=== PATIENT | female | born 1950 | race African-American/Black ===

== ENCOUNTER → 2016-05-19 | Outpatient (CLI) | payer MEDICARE, OTHER | LOC: RAD 08:28 | PROVIDERS: ATTEND Internal Medicine Medical Oncology | DX: C34.90 Malignant neoplasm of unspecified part of unspecified bronchus or lung (principal); C79.9 Secondary malignant neoplasm of unspecified site | CPT/HCPCS: 71260; 74177 ==

== ENCOUNTER 2016-06-26 22:50 | Inpatient (IN) | payer MEDICARE, OTHER ==
[2016-06-26] MEDS ORDERED: ACETAMINOPHEN 325 MG TABLET PO ONE (23:51)
[2016-06-27 00:36] LABS: VENOUS BLOOD BASE EXCESS -1.4 mmol/L; VENOUS BLOOD HCO3 22.7 mmol/L (20-32); VENOUS BLOOD PCO2 35.2 mmHg (35-63); VENOUS BLOOD PH 7.43 (7.30-7.42)
[2016-06-27 00:52] LABS: ALANINE AMINOTRANSFERASE 29 U/L (9-52); ALBUMIN 3.4 g/dL (3.5-5.0); ALKALINE PHOSPHATASE 54 U/L (38-126); ANION GAP 13 (5-19); ASPARTATE AMINO TRANSFERASE 17 U/L (14-36); BILIRUBIN,DIRECT 0.5 mg/dL (0.0-0.4); BILIRUBIN,TOTAL 1.2 mg/dL (0.2-1.3); BLOOD UREA NITROGEN 16 mg/dL (7-20); CALCIUM 9.1 mg/dL (8.4-10.2); CARBON DIOXIDE 21 mmol/L (22-30); CHLORIDE 100 mmol/L (98-107); CREATININE RESULT 1.08 mg/dL (0.52-1.25); GLUCOSE 93 mg/dL (75-110); POTASSIUM 4.1 mmol/L (3.6-5.0); SODIUM 134.2 mmol/L (137-145); TOTAL PROTEIN 6.5 g/dL (6.3-8.2)
[2016-06-27 01:00] LABS: ABSOLUTE LYMPHOCYTES (AUTO) 0.2 10^3/uL (0.5-4.7); ABSOLUTE MONOCYTES (AUTO) 0.2 10^3/uL (0.1-1.4); ABSOLUTE NEUT (AUTO) 0.5 10^3/uL (1.7-8.2); BASOPHILS % (AUTO) 0.4 % (0-2); EOSINOPHILS % (AUTO) 3.6 % (0-6); HEMATOCRIT 30.8 % (36.0-47.0); HEMOGLOBIN 9.9 g/dL (12.0-15.5); HGB HCT DIFFERENCE -1.1; LYMPHOCYTES % (AUTO) 24.1 % (13-45); MEAN CORPUSCULAR HEMOGLOBIN 27.1 pg (27.0-33.4); MEAN CORPUSCULAR HGB CONC 32.2 g/dL (32.0-36.0); MEAN CORPUSCULAR VOLUME 84 fl (80-97); MONOCYTES % (AUTO) 20.2 % (3-13); RED BLOOD COUNT 3.67 10^6/uL (3.72-5.28); RED CELL DISTRIBUTION WIDTH 20.9 % (11.5-14.0); SEGMENTED NEUTROPHILS % (AUTO) 51.7 % (42-78)
[2016-06-27 01:07] LABS: WHITE BLOOD COUNT 0.9 10^3/uL (4.0-10.5)
[2016-06-27 01:13] LABS: ANISOCYTOSIS 2+; OVALOCYTES 1+; TOXIC GRANULATION SLIGHT; TOXIC VACUOLATION PRESENT
[2016-06-27 01:14] LABS: PLATELET CLUMPS PRESENT; POIKILOCYTOSIS 1+; TEAR DROP CELLS SLIGHT
[2016-06-27] MEDS ORDERED: NORMAL SALINE 1000 ML 1,000 ML IV ONE (01:33)
--- NOTE | 2016-06-27 01:43 | ER Document Report ---
ED General - General Chief Complaint: Fever Stated Complaint: FEVER Time seen by provider: 00:47 Information source: Patient TRAVEL OUTSIDE OF THE [place] IN LAST 30 DAYS: No - HPI Notes: Nonsmoking pleasant 65-year-old female diagnosed with small cell lung cancer 2 years ago, currently is undergoing chemotherapy with last IV dose of chemotherapy 4 days ago presents with fever at home to 103.6. Patient states that 2 weeks ago she and other family members had a fever vomiting and diarrhea. She states she had a family member seem to get better, but she has continued to run a fever. She states she last vomited 3 days ago, and still has persistent mild nonbloody diarrhea. No recent antibiotics. She states she has a very minimal nonproductive cough, which is chronic. She denies any abdominal pain. No skin rash or breakdown. No chest pain. Patient describes no trouble with her [employer]. - Related Data Allergies/Adverse Reactions: alendronate sodium [From Fosamax] Allergy (Severe, Verified 11/28/14 07:45) Chest pain cefuroxime axetil [From Ceftin] Allergy (Severe, Verified 11/28/14 07:45) bleeding tramadol [Tramadol] Allergy (Severe, Verified 11/28/14 07:45) Anaphylaxis trimethoprim [Trimethoprim] Allergy (Severe, Verified 11/28/14 07:45) Chest pain Sulfa (Sulfonamide Antibiotics) Allergy (Intermediate, Verified 11/28/14 07:45) n/v codeine [Codeine] Allergy (Mild, Verified 11/28/14 07:45) drowsy Past Medical History - Social History Smoking Status: Never Smoker Chew tobacco use (# tins/day): No Frequency of alcohol use: None Drug Abuse: None Family History: Other Patient has suicidal ideation: No Patient has homicidal ideation: No - Past Medical History Cardiac Medical History: Reports: Hx Hypertension Denies: Hx Coronary Artery Disease, Hx Heart Attack Pulmonary Medical History: Denies: Hx Asthma, Hx Bronchitis, Hx COPD, Hx Pneumonia Neurological Medical History: Denies: Hx Cerebrovascular Accident, Hx Seizures Renal/ Medical History: Denies: Hx Peritoneal Dialysis Malignancy Medical History: Reports: Hx Lung Cancer Musculoskeltal Medical History: Denies Hx Arthritis Psychiatric Medical History: Denies: Hx Depression Past Surgical History: Reports: Hx Hysterectomy - Immunizations Hx Diphtheria, Pertussis, Tetanus Vaccination: No Review of Systems - Review of Systems Notes: PHYSICAL EXAMINATION: GENERAL: Well-appearing, well-nourished and in no acute distress. HEAD: Atraumatic, normocephalic. EYES: Pupils equal round and reactive to light, extraocular movements intact, conjunctiva are normal. ENT: Nares patent, oropharynx clear without exudates. Slightly dry mucous membranes. NECK: Normal range of motion, supple without lymphadenopathy. No meningismus. LUNGS: Breath sounds clear to auscultation bilaterally and equal. No wheezes rales or rhonchi. HEART: Regular rate and rhythm without murmurs ABDOMEN: Soft, nontender, nondistended abdomen. No guarding, no rebound. No masses appreciated. Female : deferred Musculoskeletal: Normal range of motion, no pitting or edema. No cyanosis. NEUROLOGICAL: Cranial nerves grossly intact. Normal speech, normal gait. Normal sensory, motor exams PSYCH: Normal mood, normal affect. SKIN: Warm, Dry, normal turgor, no rashes or lesions noted. Physical Exam - Vital signs Vitals: Temp Pulse Resp BP Pulse Ox 100.3 F 143 H 20 119/54 L 97 06/26/16 23:46 06/26/16 23:46 06/26/16 23:46 06/26/16 23:46 06/26/16 23:46 - Notes Notes: PHYSICAL EXAMINATION: GENERAL: Well-appearing, well-nourished and in no acute distress. HEAD: Atraumatic, normocephalic. EYES: Pupils equal round and reactive to light, extraocular movements intact, conjunctiva are normal. ENT: Nares patent, oropharynx clear without exudates. Somewhat dry mucous membranes. NECK: Normal range of motion, supple without lymphadenopathy LUNGS: Breath sounds clear to auscultation bilaterally and equal. No wheezes rales or rhonchi. HEART: Tachy 122 rate and reg rhythm without murmurs. Patient has a right upper chest med port which appears clear and appropriate. This traverses above the right clavicle. ABDOMEN: Soft, nontender, nondistended abdomen. No guarding, no rebound. No masses appreciated. Female : deferred Musculoskeletal: Normal range of motion, no pitting or edema. No cyanosis. NEUROLOGICAL: Cranial nerves grossly intact. Normal speech, normal gait. Normal sensory, motor exams PSYCH: Normal mood, normal affect. SKIN: Warm, Dry, normal turgor, no rashes or lesions noted. Course - Re-evaluation Re-evalutation: 06/27/16 01:43 Patient was given IV fluids 1 L and was given Tylenol for her fever. Blood and urine cultures were taken. 06/27/16 02:09 No obvious evidence for urinary tract infection or dental infection or cellulitis or hypoxia or obvious pneumonia, although cannot exclude a possible pneumonia given the presence of the lung cancer findings on chest x-ray. Question fever secondary to the patient's lung cancer. No suggestion for sepsis or SIRS given normal blood pressure and normal lactic acid. No evidence for influenza. After blood and urine cultures, the patient was given IV vancomycin and IV Levaquin. Her reported allergy to cefuroxime is related to bleeding risk. Discussion was undertaken with the patient and her and she was in agreement with admission for further evaluation and management. Discussion was undertaken with Dr. Garrido, and he agreed to admit the patient for further evaluation and care. Patient was kept on reverse isolation while in the emergency department. 06/27/16 05:53 - Vital Signs Vital signs: Temp Pulse Resp BP Pulse Ox 100.3 F 143 H 20 110/58 L 99 06/26/16 23:46 06/26/16 23:46 06/27/16 05:00 06/27/16 05:00 06/27/16 05:00 - Laboratory Result Diagrams: 06/27/16 00:00 06/27/16 00:00 Laboratory results interpreted by me: 06/27/16 06/27/16 06/27/16 00:00 00:00 00:00 WBC 0.9 L* RBC 3.67 L Hgb 9.9 L Hct 30.8 L RDW 20.9 H Monocytes % 20.2 H Absolute Neutrophils 0.5 L Absolute Lymphocytes 0.2 L PT VBG pH Sodium 134.2 L Carbon Dioxide 21 L Est GFR (Non-Af Amer) 51 L Lactic Acid 0.5 L Direct Bilirubin 0.5 H Albumin 3.4 L 06/27/16 06/27/16 00:00 00:50 WBC RBC Hgb Hct RDW Monocytes % Absolute Neutrophils Absolute Lymphocytes PT 16.0 H VBG pH 7.43 H Sodium Carbon Dioxide Est GFR (Non-Af Amer) Lactic Acid Direct Bilirubin Albumin - EKG Interpretation by Nv EKG shows normal: Sinus rhythm Additional EKG results interpreted by me: 06/27/16 02:07 EKG as interpreted by me showed sinus tachycardia rate of 120. There is nonspecific T-wave abnormalities appreciated inferiorly. There is no gross evidence for acute [place] or ischemia noted. There was no old EKG available for comparison. 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
[2016-06-27] MEDS ORDERED: VANCOMYCIN HCL INJ 1000 MG VIAL IV ONE (03:23)
[2016-06-27] MEDS: LEVOFLOXACIN 750 MG/D5W RTU 750 MG/150 ML RTUPB IV SCH (06:00)
[2016-06-27] MEDS ORDERED: LEVOFLOXACIN 750 MG/D5W RTU 150 ML IV SCH (06:00)
[2016-06-27 06:03] LABS: APPEARANCE,URINE SLIGHTLY-CLOUDY; BILIRUBIN,URINE NEGATIVE (NEGATIVE); GLUCOSE, URINE NEGATIVE (NEGATIVE); KETONES,URINE 20 mg/dL (NEGATIVE); LEUKOCYTE ESTERASE,URINE NEGATIVE (NEGATIVE); NITRITE,URINE POSITIVE (NEGATIVE); PROTEIN,URINE NEGATIVE (NEGATIVE); URINE SPECIFIC GRAVITY 1.012; UROBILINOGEN,URINE NEGATIVE mg/dL (<2.0)
[2016-06-27] MEDS ORDERED: ACETAMINOPHEN 325 MG TABLET PO PRN (08:49)
[2016-06-27] MEDS ORDERED: ENOXAPARIN SODIUM INJ 40 MG/0.4 ML DISP.SYRIN SUBCUT ONE (09:30)
[2016-06-27 10:13] LABS: PROTHROMBIN TIME 17.8 SEC (11.4-15.4)
[2016-06-27 10:14] LABS: PARTIAL THROMBOPLASTIN TIME 37.1 SEC (23.5-35.8)
[2016-06-27] MEDS: AZTREONAM 1 GM in DEXTROSE 5%-WATER 50 ML IV SCH ×2 (10:38→17:54)
[2016-06-27] MEDS: AMLODIPINE BESYLATE 5 MG TABLET PO SCH (10:39)
[2016-06-27] MEDS: LANSOPRAZOLE 30 MG TAB.RAP.DR PO SCH (10:39)
[2016-06-27] MEDS: ONDANSETRON HCL INJ/PF 4 MG/2 ML SDV IV PRN (10:39)
--- NOTE | 2016-06-27 10:59 | EKG REPORT ---
SEVERITY:- ABNORMAL ECG - SINUS TACHYCARDIA PROBABLE LEFT ATRIAL ABNORMALITY NONSPECIFIC T ABNORMALITIES, INFERIOR LEADS : Confirmed by: Melissa Malik 27-Jun-2016 10:58:35
[2016-06-27] MEDS: FILGRASTIM INJ 480 MCG/1.6 ML VIAL SUBCUT SCH (11:07)
[2016-06-27 11:59] LABS: PATH REVIEW PATHOLOGIST REVIEWED
--- NOTE | 2016-06-27 17:15 | PDOC H&P ---
History of Present Illness Admission Date/PCP: 06/27/16 06:16 CHRIS GARRIDO Patient complains of: Fever History of Present Illness: PRANAY FRAUSTO is a 65 year old female known to my practice who presented to the ED with above complaints. Spouse reported that patient was recently started on a new chemotherapy drug with 2 weeks interval administration and currently on her second cycle but have been gradually weak over last couple of days. There is associated loss of appetite, nausea, vomiting and diarrhea. Family noted that she has been less participatory and warm to touch. Her pre presentation temperature was reported at 103.6F. Spouse reported productive cough with sputum described as whitish in character. No reported chest pain or difficulty with breathing. She denied any dysuria, hematuria, of flank pain. Family reported no family member with similar problem. Past Medical History Cardiac Medical History: Reports: Hypertension Denies: Coronary Artery Disease, Myocardial Infarction Pulmonary Medical History: Denies: Asthma, Bronchitis, Chronic Obstructive Pulmonary Disease (COPD), Pneumonia Neurological Medical History: Denies: Seizures Malignancy Medical History: Reports: Lung Cancer Musculoskeltal Medical History: Denies: Arthritis Psychiatric Medical History: Denies: Depression Hematology: Reports: Anemia - PRE MENOPAUSE Past Surgical History Past Surgical History: Reports: Hysterectomy Social History Smoking Status: Never Smoker Frequency of Alcohol Use: None Hx Recreational Drug Use: No Hx Prescription Drug Abuse: No Family History Family History: Other Parental Family History Reviewed: Yes Children Family History Reviewed: Yes Sibling(s) Family History Reviewed.: Yes Medication/Allergy Home Medications: Amlodipine Besylate [Norvasc 5 mg Tablet] 5 mg PO DAILY 06/27/16 Ondansetron HCl [Zofran 8 mg Tablet] 8 mg PO TID 06/27/16 Allergies/Adverse Reactions: alendronate sodium [From Fosamax] Allergy (Severe, Verified 11/28/14 07:45) Chest pain cefuroxime axetil [From Ceftin] Allergy (Severe, Verified 11/28/14 07:45) bleeding tramadol [Tramadol] Allergy (Severe, Verified 11/28/14 07:45) Anaphylaxis trimethoprim [Trimethoprim] Allergy (Severe, Verified 11/28/14 07:45) Chest pain Sulfa (Sulfonamide Antibiotics) Allergy (Intermediate, Verified 11/28/14 07:45) n/v codeine [Codeine] Allergy (Mild, Verified 11/28/14 07:45) drowsy Review of Systems Constitutional: PRESENT: anorexia, fever(s), weakness. ABSENT: as per HPI, chills, fatigue, headache(s), night sweats, weight gain, weight loss, other Eyes: ABSENT: visual disturbances Ears: ABSENT: hearing changes Nose, Mouth, and Throat: ABSENT: as per HPI, headache(s), mouth pain, sore throat, vertigo, other Cardiovascular: ABSENT: chest pain, dyspnea on exertion, edema, orthropnea, palpitations Respiratory: PRESENT: cough, sputum. ABSENT: as per HPI, dyspnea, hemoptysis, other Gastrointestinal: PRESENT: diarrhea, nausea, vomiting. ABSENT: as per HPI, abdominal pain, bloating, coffee ground emesis, constipation, dysphagia, heartburn, hematemesis, hematochezia, melena, other Genitourinary: ABSENT: as per HPI, difficulty urinating, dysuria, hematuria, nocturia, other Musculoskeletal: PRESENT: muscle weakness. ABSENT: as per HPI, back pain, deformity, joint swelling, other Integumentary: ABSENT: rash, wounds Neurological: PRESENT: weakness - generalized. ABSENT: as per HPI, abnormal gait, abnormal movements, abnormal speech, confusion, convulsions, dizziness, focal weakness, frequent falls, lack of coordination, memory loss, numbness, paresthesias, restless legs, syncope, tingling, tremor(s), vertigo, other Psychiatric: ABSENT: anxiety, depression, homidical ideation, suicidal ideation Endocrine: ABSENT: cold intolerance, heat intolerance, menstrual abnormalities, polydipsia, polyuria Hematologic/Lymphatic: ABSENT: easy bleeding, easy bruising, lymphadenopathy Allergic/Immunologic: ABSENT: as per HPI, seasonal rhinorrhea, other Physical Exam Vital Signs: Temp Pulse Resp BP Pulse Ox 98.5 F 143 H 20 115/68 99 06/27/16 06:09 06/26/16 23:46 06/27/16 06:00 06/27/16 06:00 06/27/16 06:00 General appearance: PRESENT: no acute distress, cooperative Head exam: PRESENT: atraumatic, normocephalic Eye exam: PRESENT: conjunctiva pink, EOMI, PERRLA. ABSENT: scleral icterus Ear exam: PRESENT: normal external ear exam Mouth exam: PRESENT: moist, tongue midline Teeth exam: ABSENT: dental caries, dental tenderness, edentulous, poor dentation , other Throat exam: ABSENT: post pharyngeal erythema, tonsillar erythema, tonsillar exudate, tonsillogmegaly, other Neck exam: PRESENT: full ROM. ABSENT: carotid bruit, JVD, lymphadenopathy, thyromegaly Respiratory exam: PRESENT: clear to auscultation raz, decreased breath sounds Cardiovascular exam: PRESENT: RRR. ABSENT: diastolic murmur, rubs, systolic murmur Pulses: PRESENT: normal dorsalis pedis pul, +2 pedal pulses bilateral Vascular exam: PRESENT: normal capillary refill GI/Abdominal exam: PRESENT: normal bowel sounds, soft. ABSENT: distended, guarding, mass, organolmegaly, rebound, tenderness Rectal exam: PRESENT: deferred Gentrourinary exam: ABSENT: ecchymosis, erythema, lacerations, lesions, urethral discharge, other Extremities exam: PRESENT: full ROM Musculoskeletal exam: PRESENT: deformity - related to joint involvement with arthritis Neurological exam: PRESENT: alert, awake, oriented to person, oriented to place , oriented to time, oriented to situation, CN II-XII grossly intact. ABSENT: motor sensory deficit Psychiatric exam: PRESENT: appropriate affect, normal mood. ABSENT: homicidal ideation, suicidal ideation Skin exam: PRESENT: dry, intact, warm. ABSENT: cyanosis, rash Results Laboratory Results: I reviewed her laboratory results on [employer] and form a significant part of my medical decision making. Impressions: Chest X-Ray 06/27/16 01:34 IMPRESSION: Left lower hemithoracic and right upper lobar opacities consistent with prior abnormal CT, 05/19/2016 this patient with suspected metastatic lung cancer . Assessment & Plan - Diagnosis (1) Neutropenic fever Is this a current diagnosis for this admission?: YesPlan: See admitting physician orders. (2) HTN (hypertension) Qualifiers: Hypertension type: essential hypertension Qualified Code(s): I10 - Essential (primary) hypertension Is this a current diagnosis for this admission?: YesPlan: See admitting physician orders. (3) Lung cancer Qualifiers: Laterality: unspecified laterality Lung location: unspecified part of lung Qualified Code(s): C34.90 - Malignant neoplasm of unspecified part of unspecified bronchus or lung Is this a current diagnosis for this admission?: YesPlan: See admitting physician orders. (4) Gastroenteritis due to antineoplastic chemotherapy Is this a current diagnosis for this admission?: YesPlan: See admitting physician orders. - Time Time Spent: 50 to 70 Minutes Medications reviewed and adjusted accordingly: Yes Within: Other - Inpatient Certification Based on my medical assessment, after consideration of the patient's comorbidities, presenting symptoms, or acuity I expect that the services needed warrant INPATIENT care.: Yes I certify that my determination is in accordance with my understanding of Medicare's requirements for reasonable and necessary INPATIENT services [42 CFR 412.3e].: Yes Medical Necessity: Need Close Monitoring Due to Risk of Patient Decompensation, Need For IV Fluids, Need For Continuous Telemetry Monitoring, Need for IV Antibiotics, Risk of Complication if Not Cared For in Hospital Post Hospital Care: D/C Ekg Tech Documentation - Plan Summary Plan Summary: See admitting physician orders.
[2016-06-28] MEDS: NORMAL SALINE 1000 ML 1,000 ML IV PRN ×2 (00:40→18:22)
[2016-06-28] MEDS: AZTREONAM 1 GM in DEXTROSE 5%-WATER 50 ML IV SCH ×3 (03:20→18:17)
[2016-06-28 05:59] LABS: HEMOGLOBIN 8.1 g/dL (12.0-15.5); HGB HCT DIFFERENCE -0.7; MEAN CORPUSCULAR HEMOGLOBIN 26.8 pg (27.0-33.4); MEAN CORPUSCULAR HGB CONC 32.3 g/dL (32.0-36.0); MEAN CORPUSCULAR VOLUME 83 fl (80-97); RED CELL DISTRIBUTION WIDTH 20.6 % (11.5-14.0); WHITE BLOOD COUNT 1.6 10^3/uL (4.0-10.5)
[2016-06-28 06:17] LABS: BLOOD UREA NITROGEN 11 mg/dL (7-20); CALCIUM 8.4 mg/dL (8.4-10.2); CARBON DIOXIDE 20 mmol/L (22-30); CHLORIDE 103 mmol/L (98-107); CREATININE RESULT 0.92 mg/dL (0.52-1.25); GLUCOSE 97 mg/dL (75-110); POTASSIUM 3.7 mmol/L (3.6-5.0)
[2016-06-28 06:21] LABS: ANION GAP 10 (5-19); SODIUM 133.3 mmol/L (137-145)
[2016-06-28 06:40] LABS: BASOPHILS % (MANUAL) 0 % (0-2); EOSINOPHILS % (MANUAL) 4 % (0-6); LYMPHOCYTES % (MANUAL) 21 % (13-45); TOTAL CELLS COUNTED 100
[2016-06-28 06:42] LABS: ANISOCYTOSIS 2+; HYPOCHROMASIA SLIGHT; OVALOCYTES 1+; POIKILOCYTOSIS 1+; SCHISTOCYTES SLIGHT; TEAR DROP CELLS 1+; TOXIC GRANULATION 1+; TOXIC VACUOLATION PRESENT
[2016-06-28 06:43] LABS: PLATELET CLUMPS PRESENT
[2016-06-28 06:44] LABS: BAND NEUTROPHILS % (MANUAL) 18 % (3-5)
[2016-06-28] MEDS: ENOXAPARIN SODIUM INJ 40 MG/0.4 ML DISP.SYRIN SUBCUT SCH (08:10)
[2016-06-28] MEDS: ONDANSETRON HCL INJ/PF 4 MG/2 ML SDV IV PRN ×2 (08:31→15:10)
[2016-06-28] MEDS: AMLODIPINE BESYLATE 5 MG TABLET PO SCH (09:30)
[2016-06-28] MEDS: FILGRASTIM INJ 480 MCG/1.6 ML VIAL SUBCUT SCH (09:31)
[2016-06-28] MEDS: LEVOFLOXACIN 750 MG/D5W RTU 750 MG/150 ML RTUPB IV SCH (09:31)
[2016-06-28] MEDS: LANSOPRAZOLE 30 MG TAB.RAP.DR PO SCH (09:31)
--- NOTE | 2016-06-28 16:22 | PDOC PROGRESS REPORT ---
Subjective Progress Note for:: 06/28/16 Subjective:: She was seen by the bedside, she was admitted for febrile neutropenia Physical Exam Vital Signs: Temp Pulse Resp BP Pulse Ox 98.7 F 115 H 16 101/47 L 100 06/28/16 11:26 06/28/16 14:00 06/28/16 11:26 06/28/16 11:26 06/28/16 11:26 Intake & Output 06/27/16 06/28/16 06/29/16 06:59 06:59 06:59 Intake Total 2049 220 Output Total 100 Balance 2049 120 Weight 52.8 kg General appearance: PRESENT: no acute distress, well-developed, well-nourished Head exam: PRESENT: atraumatic, normocephalic Eye exam: PRESENT: conjunctiva pink, EOMI, PERRLA Ear exam: PRESENT: normal external ear exam Mouth exam: PRESENT: moist, tongue midline Neck exam: PRESENT: full ROM Respiratory exam: PRESENT: clear to auscultation raz Cardiovascular exam: PRESENT: RRR, +S1, +S2 Pulses: PRESENT: normal dorsalis pedis pul, +2 pedal pulses bilateral Vascular exam: PRESENT: normal capillary refill GI/Abdominal exam: PRESENT: normal bowel sounds, soft Rectal exam: PRESENT: deferred Neurological exam: PRESENT: alert, awake, oriented to person, oriented to place , oriented to time, oriented to situation, CN II-XII grossly intact. ABSENT: motor sensory deficit Psychiatric exam: PRESENT: appropriate affect, normal mood Skin exam: PRESENT: dry, intact, warm Results Laboratory Results: 06/28/16 05:44 06/28/16 05:44 06/28/16 06/28/16 06/28/16 05:44 05:44 05:50 WBC 1.6 L RBC 3.00 L Hgb 8.1 L Hct 25.0 L MCV 83 MCH 26.8 L MCHC 32.3 RDW 20.6 H Plt Count 142 L Seg Neutrophils % Not Reportable Lymphocytes % Not Reportable Monocytes % Not Reportable Eosinophils % Not Reportable Basophils % Not Reportable Absolute Neutrophils Not Reportable Absolute Lymphocytes Not Reportable Absolute Monocytes Not Reportable Absolute Eosinophils Not Reportable Absolute Basophils Not Reportable Sodium 133.3 L Potassium 3.7 Chloride 103 Carbon Dioxide 20 L Anion Gap 10 BUN 11 Creatinine 0.92 Est GFR ( Amer) > 60 Est GFR (Non-Af Amer) > 60 Glucose 97 Calcium 8.4 Stool Occult Blood NEGATIVE Stool for White Cells 06/28/16 05:50 WBC RBC Hgb Hct MCV MCH MCHC RDW Plt Count Seg Neutrophils % Lymphocytes % Monocytes % Eosinophils % Basophils % Absolute Neutrophils Absolute Lymphocytes Absolute Monocytes Absolute Eosinophils Absolute Basophils Sodium Potassium Chloride Carbon Dioxide Anion Gap BUN Creatinine Est GFR ( Amer) Est GFR (Non-Af Amer) Glucose Calcium Stool Occult Blood Stool for White Cells MANY H Impressions: Chest X-Ray 06/27/16 01:34 IMPRESSION: Left lower hemithoracic and right upper lobar opacities consistent with prior abnormal CT, 05/19/2016 this patient with suspected metastatic lung cancer . Assessment & Plan - Diagnosis (2) Gastroenteritis due to antineoplastic chemotherapy Is this a current diagnosis for this admission?: Yes (3) HTN (hypertension) Qualifiers: Hypertension type: essential hypertension Qualified Code(s): I10 - Essential (primary) hypertension Is this a current diagnosis for this admission?: Yes (4) Lung cancer Qualifiers: Laterality: unspecified laterality Lung location: unspecified part of lung Qualified Code(s): C34.90 - Malignant neoplasm of unspecified part of unspecified bronchus or lung Is this a current diagnosis for this admission?: Yes (5) Neutropenic fever Is this a current diagnosis for this admission?: Yes - Plan Summary Plan Summary: Continue IV antibiotic and other treatment
[2016-06-29] MEDS: AZTREONAM 1 GM in DEXTROSE 5%-WATER 50 ML IV SCH ×3 (02:24→18:07)
[2016-06-29 05:33] LABS: HEMATOCRIT 25.7 % (36.0-47.0); HEMOGLOBIN 8.3 g/dL (12.0-15.5); HGB HCT DIFFERENCE -0.8; MEAN CORPUSCULAR HGB CONC 32.4 g/dL (32.0-36.0); MEAN CORPUSCULAR VOLUME 84 fl (80-97); RED BLOOD COUNT 3.07 10^6/uL (3.72-5.28); RED CELL DISTRIBUTION WIDTH 20.9 % (11.5-14.0); WHITE BLOOD COUNT 2.4 10^3/uL (4.0-10.5)
[2016-06-29 06:00] LABS: BAND NEUTROPHILS % (MANUAL) 15 % (3-5); BASOPHILS % (MANUAL) 0 % (0-2); EOSINOPHILS % (MANUAL) 5 % (0-6); LYMPHOCYTES % (MANUAL) 13 % (13-45); TOTAL CELLS COUNTED 100
[2016-06-29 06:02] LABS: ANISOCYTOSIS 3+; OVALOCYTES 1+; PLATELET CLUMPS PRESENT; POIKILOCYTOSIS 1+; SCHISTOCYTES SLIGHT; TEAR DROP CELLS 1+; TOXIC GRANULATION 1+; TOXIC VACUOLATION PRESENT
[2016-06-29 06:03] LABS: HYPOCHROMASIA SLIGHT
[2016-06-29] MEDS: ENOXAPARIN SODIUM INJ 40 MG/0.4 ML DISP.SYRIN SUBCUT SCH (09:07)
[2016-06-29] MEDS: LEVOFLOXACIN 750 MG/D5W RTU 750 MG/150 ML RTUPB IV SCH (09:08)
[2016-06-29] MEDS: AMLODIPINE BESYLATE 5 MG TABLET PO SCH (09:09)
[2016-06-29] MEDS: LANSOPRAZOLE 30 MG TAB.RAP.DR PO SCH (09:09)
[2016-06-29] MEDS: FILGRASTIM INJ 480 MCG/1.6 ML VIAL SUBCUT SCH (11:23)
[2016-06-29] MEDS: NORMAL SALINE 1000 ML 1,000 ML IV PRN (11:25)
[2016-06-29] MEDS: ONDANSETRON HCL INJ/PF 4 MG/2 ML SDV IV PRN (11:32)
[2016-06-29] MEDS ORDERED: LOPERAMIDE HCL 2 MG CAPSULE PO PRN (11:54)
--- NOTE | 2016-06-29 18:03 | PDOC PROGRESS REPORT ---
Subjective Progress Note for:: 06/29/16 Subjective:: She was admitted because of febrile neutropenia and diarrhea the stool was positive for Salmonella suggesting fecal -oral contamination. Physical Exam Vital Signs: Temp Pulse Resp BP Pulse Ox 98.4 F 114 H 14 128/58 H 100 06/29/16 15:19 06/29/16 15:19 06/29/16 15:19 06/29/16 15:19 06/29/16 15:19 Intake & Output 06/28/16 06/29/16 06/30/16 06:59 06:59 06:59 Intake Total 2049 319 Output Total 700 Balance 2049 2493 Weight 52.8 kg General appearance: PRESENT: no acute distress Eye exam: PRESENT: PERRLA Respiratory exam: PRESENT: clear to auscultation raz Cardiovascular exam: PRESENT: +S1, +S2 Neurological exam: PRESENT: alert Results Laboratory Results: 06/29/16 04:45 06/28/16 05:44 06/29/16 04:45 WBC 2.4 L RBC 3.07 L Hgb 8.3 L Hct 25.7 L MCV 84 MCH 27.0 MCHC 32.4 RDW 20.9 H Plt Count 160 Seg Neutrophils % Not Reportable Lymphocytes % Not Reportable Monocytes % Not Reportable Eosinophils % Not Reportable Basophils % Not Reportable Absolute Neutrophils Not Reportable Absolute Lymphocytes Not Reportable Absolute Monocytes Not Reportable Absolute Eosinophils Not Reportable Absolute Basophils Not Reportable Impressions: Chest X-Ray 06/27/16 01:34 IMPRESSION: Left lower hemithoracic and right upper lobar opacities consistent with prior abnormal CT, 05/19/2016 this patient with suspected metastatic lung cancer . Assessment & Plan - Diagnosis (2) Gastroenteritis due to antineoplastic chemotherapy Is this a current diagnosis for this admission?: Yes (3) HTN (hypertension) Qualifiers: Hypertension type: essential hypertension Qualified Code(s): I10 - Essential (primary) hypertension Is this a current diagnosis for this admission?: Yes (4) Lung cancer Qualifiers: Laterality: unspecified laterality Lung location: unspecified part of lung Qualified Code(s): C34.90 - Malignant neoplasm of unspecified part of unspecified bronchus or lung Is this a current diagnosis for this admission?: Yes (5) Neutropenic fever Is this a current diagnosis for this admission?: Yes (6) Salmonella serotype B enterocolitis Is this a current diagnosis for this admission?: YesPlan: Patient already on Levaquin
[2016-06-29] MEDS: DRONABINOL 2.5 MG CAPSULE PO SCH (18:07)
[2016-06-30] MEDS: AZTREONAM 1 GM in DEXTROSE 5%-WATER 50 ML IV SCH ×3 (02:38→21:04)
[2016-06-30] MEDS: NORMAL SALINE 1000 ML 1,000 ML IV PRN (02:40)
[2016-06-30 06:46] LABS: HEMATOCRIT 23.5 % (36.0-47.0); HGB HCT DIFFERENCE 0.2; MEAN CORPUSCULAR HEMOGLOBIN 27.6 pg (27.0-33.4); MEAN CORPUSCULAR HGB CONC 33.5 g/dL (32.0-36.0); MEAN CORPUSCULAR VOLUME 82 fl (80-97); RED BLOOD COUNT 2.86 10^6/uL (3.72-5.28); RED CELL DISTRIBUTION WIDTH 20.7 % (11.5-14.0); WHITE BLOOD COUNT 2.4 10^3/uL (4.0-10.5)
[2016-06-30 07:20] LABS: HEMOGLOBIN 7.9 g/dL (12.0-15.5)
[2016-06-30 07:45] LABS: BAND NEUTROPHILS % (MANUAL) 17 % (3-5); BASOPHILS % (MANUAL) 0 % (0-2); EOSINOPHILS % (MANUAL) 4 % (0-6); LYMPHOCYTES % (MANUAL) 18 % (13-45); TOTAL CELLS COUNTED 100
[2016-06-30 07:46] LABS: ANISOCYTOSIS 2+; HYPOCHROMASIA 1+; OVALOCYTES 2+; POIKILOCYTOSIS 2+; POLYCHROMASIA SLIGHT; TOXIC GRANULATION 2+; TOXIC VACUOLATION PRESENT
--- NOTE | 2016-06-30 09:14 | PDOC PROGRESS REPORT ---
Subjective Progress Note for:: 06/30/16 Subjective:: Patient reported some improvement in her appetite over last 24 hours. There is nausea with minimal amount of vomiting which is fairly controlled on current Zofran usage. There is associated epigastric abdominal discomfort. No chest pain or difficulty with breathing. Remain on IV Levofloxacin and Aztreonam coverage. There is significant drop in her hemoglobin to 7.9 gm/dl this morning. Physical Exam Vital Signs: Temp Pulse Resp BP Pulse Ox 98.7 F 114 H 16 107/53 L 100 06/30/16 04:12 06/30/16 07:00 06/30/16 04:12 06/30/16 04:12 06/30/16 04:12 Intake & Output 06/29/16 06/30/16 07/01/16 06:59 06:59 06:59 Intake Total 3193 2542 Output Total 700 500 Balance 2493 2042 General appearance: PRESENT: no acute distress, cooperative Head exam: PRESENT: atraumatic, normocephalic Eye exam: PRESENT: conjunctiva pink, EOMI, PERRLA. ABSENT: scleral icterus Mouth exam: PRESENT: moist, tongue midline Throat exam: ABSENT: post pharyngeal erythema, tonsillar erythema, tonsillar exudate, tonsillogmegaly, other Respiratory exam: PRESENT: clear to auscultation raz, decreased breath sounds - at bases Cardiovascular exam: PRESENT: RRR. ABSENT: diastolic murmur, rubs, systolic murmur GI/Abdominal exam: PRESENT: normal bowel sounds, soft, tenderness - elicited to deep palpation.. 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 Results Laboratory Results: 06/30/16 06:18 06/28/16 05:44 06/30/16 06:18 WBC 2.4 L RBC 2.86 L Hgb 7.9 L Hct 23.5 L MCV 82 MCH 27.6 MCHC 33.5 RDW 20.7 H Plt Count 166 Seg Neutrophils % Not Reportable Lymphocytes % Not Reportable Monocytes % Not Reportable Eosinophils % Not Reportable Basophils % Not Reportable Absolute Neutrophils Not Reportable Absolute Lymphocytes Not Reportable Absolute Monocytes Not Reportable Absolute Eosinophils Not Reportable Absolute Basophils Not Reportable Impressions: Chest X-Ray 06/27/16 01:34 IMPRESSION: Left lower hemithoracic and right upper lobar opacities consistent with prior abnormal CT, 05/19/2016 this patient with suspected metastatic lung cancer . Assessment & Plan - Diagnosis (1) Neutropenic fever Is this a current diagnosis for this admission?: Yes (2) HTN (hypertension) Qualifiers: Hypertension type: essential hypertension Qualified Code(s): I10 - Essential (primary) hypertension Is this a current diagnosis for this admission?: Yes (3) Lung cancer Qualifiers: Laterality: unspecified laterality Lung location: unspecified part of lung Qualified Code(s): C34.90 - Malignant neoplasm of unspecified part of unspecified bronchus or lung Is this a current diagnosis for this admission?: Yes (4) Gastroenteritis due to antineoplastic chemotherapy Is this a current diagnosis for this admission?: Yes (5) Anemia associated with chemotherapy Is this a current diagnosis for this admission?: YesPlan: Patient will receive 2 units of PRBC transfusion. Monitor post transfusion hemoglobin level. (6) E. coli UTI Is this a current diagnosis for this admission?: YesPlan: Continue IV Levofloxacin coverage. (7) Salmonella serotype B enterocolitis Is this a current diagnosis for this admission?: YesPlan: Continue IV Levofloxacin coverage. 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
[2016-06-30] MEDS: LANSOPRAZOLE 30 MG TAB.RAP.DR PO SCH (09:49)
[2016-06-30] MEDS: ENOXAPARIN SODIUM INJ 40 MG/0.4 ML DISP.SYRIN SUBCUT SCH (09:49)
[2016-06-30] MEDS: AMLODIPINE BESYLATE 5 MG TABLET PO SCH (09:52)
[2016-06-30] MEDS: DRONABINOL 2.5 MG CAPSULE PO SCH ×2 (09:53→17:14)
[2016-06-30] MEDS: FILGRASTIM INJ 480 MCG/1.6 ML VIAL SUBCUT SCH (10:59)
[2016-06-30] MEDS: LEVOFLOXACIN 750 MG/D5W RTU 750 MG/150 ML RTUPB IV SCH (10:59)
[2016-06-30 13:31] LABS: PATH REVIEW PATHOLOGIST REVIEWED
[2016-07-01 05:32] LABS: HGB HCT DIFFERENCE 0.6; MEAN CORPUSCULAR HEMOGLOBIN 28.2 pg (27.0-33.4); MEAN CORPUSCULAR HGB CONC 34.1 g/dL (32.0-36.0); MEAN CORPUSCULAR VOLUME 83 fl (80-97); RED BLOOD COUNT 3.98 10^6/uL (3.72-5.28); RED CELL DISTRIBUTION WIDTH 17.8 % (11.5-14.0)
[2016-07-01 05:41] LABS: HEMOGLOBIN 11.2 g/dL (12.0-15.5)
[2016-07-01] MEDS ORDERED: AZTREONAM 1 GM in DEXTROSE 5%-WATER 50 ML IV SCH ×2 (06:00→14:00)
[2016-07-01 06:07] LABS: BAND NEUTROPHILS % (MANUAL) 6 % (3-5); BASOPHILS % (MANUAL) 0 % (0-2); EOSINOPHILS % (MANUAL) 3 % (0-6); LYMPHOCYTES % (MANUAL) 18 % (13-45); TOTAL CELLS COUNTED 100
[2016-07-01 06:09] LABS: ANISOCYTOSIS 1+; OVALOCYTES SLIGHT; POIKILOCYTOSIS SLIGHT; TEAR DROP CELLS SLIGHT; TOXIC GRANULATION SLIGHT
[2016-07-01] MEDS: AMLODIPINE BESYLATE 5 MG TABLET PO SCH (09:32)
[2016-07-01] MEDS: ENOXAPARIN SODIUM INJ 40 MG/0.4 ML DISP.SYRIN SUBCUT SCH (09:40)
[2016-07-01] MEDS: LANSOPRAZOLE 30 MG TAB.RAP.DR PO SCH (09:41)
[2016-07-01] MEDS: DRONABINOL 2.5 MG CAPSULE PO SCH ×2 (09:41→17:25)
[2016-07-01] MEDS: LEVOFLOXACIN 750 MG/D5W RTU 750 MG/150 ML RTUPB IV SCH (09:42)
[2016-07-01] MEDS: AZTREONAM 1 GM in DEXTROSE 5%-WATER 100 ML IV SCH ×2 (14:04→21:07)
[2016-07-01] MEDS: NORMAL SALINE 1000 ML 1,000 ML IV PRN (21:06)
[2016-07-02] MEDS: AZTREONAM 1 GM in DEXTROSE 5%-WATER 100 ML IV SCH (05:05)
[2016-07-02] MEDS ORDERED: DIPHENOXYLATE HCL/ATROP SULF 2.5-0.025 MG TABLET PO ONE (07:38)
--- NOTE | 2016-07-02 07:48 | PDOC PROGRESS REPORT ---
Subjective Progress Note for:: 07/01/16 Subjective:: Patient reported minimal nausea. No vomiting. Some improvement in p.o intake but appetite remain poor. There is persistence of diarrhea. No chest pain or difficulty with breathing. Remain on IV Levofloxacin and Aztreonam coverage. There is significant drop in her hemoglobin to 7.9 gm/dl this morning. Physical Exam Vital Signs: Temp Pulse Resp BP Pulse Ox 98.4 F 102 H 18 115/61 99 07/01/16 02:30 07/01/16 07:00 07/01/16 02:30 07/01/16 02:30 07/01/16 02:30 Intake & Output 06/30/16 07/01/16 07/02/16 06:59 06:59 06:59 Intake Total 2542 1821 Output Total 500 Balance 2041 1821 Physical Exam: General appearance: PRESENT: no acute distress, cooperative Head exam: PRESENT: atraumatic, normocephalic Eye exam: PRESENT: conjunctiva pink, EOMI, PERRLA. ABSENT: scleral icterus Mouth exam: PRESENT: moist, tongue midline Respiratory exam: PRESENT: clear to auscultation raz, decreased breath sounds - at bases Cardiovascular exam: PRESENT: RRR. ABSENT: diastolic murmur, rubs, systolic murmur GI/Abdominal exam: PRESENT: normal bowel sounds, soft, tenderness - elicited to deep palpation.. 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 Results Laboratory Results: 07/01/16 05:15 06/28/16 05:44 06/28/16 06/30/16 07/01/16 05:44 09:45 05:15 WBC 1.6 L 3.0 L RBC 3.00 L 3.98 Hgb 8.1 L 11.2 L D Hct 25.0 L 33.0 L MCV 83 83 MCH 26.8 L 28.2 MCHC 32.3 34.1 RDW 20.6 H 17.8 H Plt Count 142 L 173 Seg Neutrophils % Not Reportable Lymphocytes % Not Reportable Monocytes % Not Reportable Eosinophils % Not Reportable Basophils % Not Reportable Absolute Neutrophils Not Reportable Absolute Lymphocytes Not Reportable Absolute Monocytes Not Reportable Absolute Eosinophils Not Reportable Absolute Basophils Not Reportable Blood Type A POSITIVE Antibody Screen NEGATIVE Impressions: Chest X-Ray 06/27/16 01:34 IMPRESSION: Left lower hemithoracic and right upper lobar opacities consistent with prior abnormal CT, 05/19/2016 this patient with suspected metastatic lung cancer . Assessment & Plan - Diagnosis (1) Neutropenic fever Is this a current diagnosis for this admission?: YesPlan: See attending physician orders. (2) HTN (hypertension) Qualifiers: Hypertension type: essential hypertension Qualified Code(s): I10 - Essential (primary) hypertension Is this a current diagnosis for this admission?: YesPlan: See attending physician orders. (3) Lung cancer Qualifiers: Laterality: unspecified laterality Lung location: unspecified part of lung Qualified Code(s): C34.90 - Malignant neoplasm of unspecified part of unspecified bronchus or lung Is this a current diagnosis for this admission?: YesPlan: See attending physician orders. (4) Gastroenteritis due to antineoplastic chemotherapy Is this a current diagnosis for this admission?: YesPlan: See attending physician orders. Monitor for persistence of diarrhea. (5) Anemia associated with chemotherapy Is this a current diagnosis for this admission?: YesPlan: Patient will receive 2 units of PRBC transfusion. Monitor post transfusion hemoglobin level. (6) E. coli UTI Is this a current diagnosis for this admission?: YesPlan: Continue IV Levofloxacin coverage. (7) Salmonella serotype B enterocolitis Is this a current diagnosis for this admission?: YesPlan: Continue IV Levofloxacin coverage. - Time Time Spent with patient: 25-34 minutes Medications reviewed and adjusted accordingly: Yes Anticipated discharge: Home with Homehealth Within: Other - Inpatient Certification Post Hospital Care: D/C Qa Intern Documentation - Plan Summary Plan Summary: See attending physician orders.
--- NOTE | 2016-07-02 07:56 | PDOC PROGRESS REPORT ---
Subjective Progress Note for:: 07/02/16 Subjective:: Patient reported persistence of diarrhea. No significant fever, chills, nausea, or vomiting. Some improvement in p.o intake but appetite remain poor. No chest pain or difficulty with breathing. Remain on IV Levofloxacin and Aztreonam coverage. She is s/p transfusion of 2 units PRBC. Physical Exam Vital Signs: Temp Pulse Resp BP Pulse Ox 98.2 F 102 H 14 129/64 H 100 07/02/16 04:50 07/02/16 04:50 07/02/16 04:50 07/02/16 04:50 07/02/16 04:50 Intake & Output 07/01/16 07/02/16 07/03/16 06:59 06:59 06:59 Intake Total 1821 2046 Balance 1821 2045 Physical Exam: General appearance: PRESENT: no acute distress, cooperative Head exam: PRESENT: atraumatic, normocephalic Eye exam: PRESENT: conjunctiva pink, EOMI, PERRLA. ABSENT: scleral icterus Mouth exam: PRESENT: moist, tongue midline Throat exam: ABSENT: post pharyngeal erythema, tonsillar erythema, tonsillar exudate, tonsillogmegaly, other Respiratory exam: PRESENT: clear to auscultation raz, decreased breath sounds - at bases Cardiovascular exam: PRESENT: RRR. ABSENT: diastolic murmur, rubs, systolic murmur GI/Abdominal exam: PRESENT: normal bowel sounds, soft, tenderness - elicited to deep palpation.. 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 Assessment & Plan - Diagnosis (1) Neutropenic fever Is this a current diagnosis for this admission?: YesPlan: See attending physician orders. I will d/c Aztreonam usage. (2) HTN (hypertension) Qualifiers: Hypertension type: essential hypertension Qualified Code(s): I10 - Essential (primary) hypertension Is this a current diagnosis for this admission?: YesPlan: See attending physician orders. (3) Lung cancer Qualifiers: Laterality: unspecified laterality Lung location: unspecified part of lung Qualified Code(s): C34.90 - Malignant neoplasm of unspecified part of unspecified bronchus or lung Is this a current diagnosis for this admission?: YesPlan: See attending physician orders. (4) Gastroenteritis due to antineoplastic chemotherapy Is this a current diagnosis for this admission?: YesPlan: See attending physician orders. I will order for Lomotil 5mg p.o x 1 dose. Her Salmonella species enteritis is sensitive to Levofloxacin. (5) Anemia associated with chemotherapy Is this a current diagnosis for this admission?: YesPlan: Patient is s/p 2 units PRBC transfusion with improvement in her hemoglobin level to 11.2 gm/dl. (6) E. coli UTI Is this a current diagnosis for this admission?: YesPlan: Continue IV Levofloxacin coverage. (7) Salmonella serotype B enterocolitis Is this a current diagnosis for this admission?: YesPlan: Continue IV Levofloxacin coverage. - Time Time Spent with patient: 25-34 minutes Medications reviewed and adjusted accordingly: Yes Anticipated discharge: Home with Homehealth Within: Other - Inpatient Certification Based on my medical assessment, after consideration of the patient's comorbidities, presenting symptoms, or acuity I expect that the services needed warrant INPATIENT care.: Yes I certify that my determination is in accordance with my understanding of Medicare's requirements for reasonable and necessary INPATIENT services [42 CFR 412.3e].: Yes Medical Necessity: Need Close Monitoring Due to Risk of Patient Decompensation, Need For IV Fluids, Need For Continuous Telemetry Monitoring, Need for IV Antibiotics, Risk of Complication if Not Cared For in Hospital 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
[2016-07-02] MEDS: ENOXAPARIN SODIUM INJ 40 MG/0.4 ML DISP.SYRIN SUBCUT SCH (09:42)
[2016-07-02] MEDS: LEVOFLOXACIN 750 MG/D5W RTU 750 MG/150 ML RTUPB IV SCH (09:42)
[2016-07-02] MEDS: DRONABINOL 2.5 MG CAPSULE PO SCH ×2 (09:42→19:09)
[2016-07-02] MEDS: AMLODIPINE BESYLATE 5 MG TABLET PO SCH (09:43)
[2016-07-02] MEDS: LANSOPRAZOLE 30 MG TAB.RAP.DR PO SCH (09:43)
[2016-07-02] MEDS: ONDANSETRON HCL INJ/PF 4 MG/2 ML SDV IV PRN (14:52)
[2016-07-02] MEDS: DIPHENOXYLATE HCL/ATROP SULF 2.5-0.025 MG TABLET PO PRN ×2 (19:10→22:57)
[2016-07-03] MEDS: DIPHENOXYLATE HCL/ATROP SULF 2.5-0.025 MG TABLET PO PRN ×2 (03:12→11:13)
[2016-07-03 06:44] LABS: HEMATOCRIT 31.5 % (36.0-47.0); HEMOGLOBIN 10.6 g/dL (12.0-15.5); HGB HCT DIFFERENCE 0.3; MEAN CORPUSCULAR HEMOGLOBIN 28.2 pg (27.0-33.4); MEAN CORPUSCULAR HGB CONC 33.7 g/dL (32.0-36.0); MEAN CORPUSCULAR VOLUME 84 fl (80-97); RED BLOOD COUNT 3.76 10^6/uL (3.72-5.28); RED CELL DISTRIBUTION WIDTH 18.3 % (11.5-14.0); WHITE BLOOD COUNT 2.7 10^3/uL (4.0-10.5)
[2016-07-03 06:54] LABS: ALANINE AMINOTRANSFERASE 34 U/L (9-52); ALBUMIN 2.1 g/dL (3.5-5.0); ALKALINE PHOSPHATASE 63 U/L (38-126); ANION GAP 8 (5-19); ASPARTATE AMINO TRANSFERASE 18 U/L (14-36); BILIRUBIN,DIRECT 0.2 mg/dL (0.0-0.4); BILIRUBIN,TOTAL 0.5 mg/dL (0.2-1.3); BLOOD UREA NITROGEN 7 mg/dL (7-20); CARBON DIOXIDE 25 mmol/L (22-30); CHLORIDE 106 mmol/L (98-107); CREATININE RESULT 0.61 mg/dL (0.52-1.25); GLUCOSE 79 mg/dL (75-110); SODIUM 139.3 mmol/L (137-145); TOTAL PROTEIN 4.4 g/dL (6.3-8.2)
[2016-07-03 06:56] LABS: POTASSIUM 2.8 mmol/L (3.6-5.0)
[2016-07-03 07:14] LABS: BAND NEUTROPHILS % (MANUAL) 13 % (3-5); BASOPHILS % (MANUAL) 0 % (0-2); EOSINOPHILS % (MANUAL) 5 % (0-6); LYMPHOCYTES % (MANUAL) 20 % (13-45); TOTAL CELLS COUNTED 100
[2016-07-03 07:15] LABS: ANISOCYTOSIS 2+; POIKILOCYTOSIS 1+; TEAR DROP CELLS 1+
[2016-07-03] MEDS: POTASSI CL 20 MEQ/50 ML RIDER 50 ML IV SCH ×3 (08:17→14:35)
[2016-07-03] MEDS: ENOXAPARIN SODIUM INJ 40 MG/0.4 ML DISP.SYRIN SUBCUT SCH (08:26)
--- NOTE | 2016-07-03 08:49 | PDOC PROGRESS REPORT ---
Subjective Progress Note for:: 07/03/16 Subjective:: Patient reported some improvement in diarrhea frequency and stool consistency. Improving nausea, vomiting and p.o intake. No chest pain or difficulty with breathing. No fever or chills. Physical Exam Vital Signs: Temp Pulse Resp BP Pulse Ox 98.1 F 96 20 117/54 L 100 07/03/16 03:56 07/03/16 07:00 07/03/16 03:56 07/03/16 03:56 07/03/16 03:56 Intake & Output 07/02/16 07/03/16 07/04/16 06:59 06:59 06:59 Intake Total 2045 2460 Balance 2045 2460 General appearance: PRESENT: no acute distress, well-developed, well-nourished Head exam: PRESENT: atraumatic, normocephalic Eye exam: PRESENT: conjunctiva pink, EOMI, PERRLA. ABSENT: scleral icterus Mouth exam: PRESENT: moist Respiratory exam: PRESENT: clear to auscultation raz Cardiovascular exam: PRESENT: RRR. ABSENT: diastolic murmur, rubs, systolic murmur GI/Abdominal exam: PRESENT: normal bowel sounds, soft. ABSENT: distended, guarding, mass, organolmegaly, rebound, tenderness Extremities exam: PRESENT: full ROM Musculoskeletal exam: PRESENT: deformity - related to her arthritis Neurological exam: PRESENT: alert, awake, oriented to person, oriented to place , oriented to time, oriented to situation, CN II-XII grossly intact. ABSENT: motor sensory deficit Psychiatric exam: PRESENT: appropriate affect, normal mood. ABSENT: homicidal ideation, suicidal ideation Skin exam: PRESENT: dry, intact, warm. ABSENT: cyanosis, rash Results Laboratory Results: 07/03/16 06:24 07/03/16 06:24 07/03/16 07/03/16 06:24 06:24 WBC 2.7 L RBC 3.76 Hgb 10.6 L Hct 31.5 L MCV 84 MCH 28.2 MCHC 33.7 RDW 18.3 H Plt Count 154 Seg Neutrophils % Not Reportable Lymphocytes % Not Reportable Monocytes % Not Reportable Eosinophils % Not Reportable Basophils % Not Reportable Absolute Neutrophils Not Reportable Absolute Lymphocytes Not Reportable Absolute Monocytes Not Reportable Absolute Eosinophils Not Reportable Absolute Basophils Not Reportable Sodium 139.3 Potassium 2.8 L* Chloride 106 Carbon Dioxide 25 Anion Gap 8 BUN 7 Creatinine 0.61 Est GFR ( Amer) > 60 Est GFR (Non-Af Amer) > 60 Glucose 79 Calcium 8.0 L Total Bilirubin 0.5 AST 18 ALT 34 Alkaline Phosphatase 63 Total Protein 4.4 L Albumin 2.1 L Impressions: Chest X-Ray 06/27/16 01:34 IMPRESSION: Left lower hemithoracic and right upper lobar opacities consistent with prior abnormal CT, 05/19/2016 this patient with suspected metastatic lung cancer . Assessment & Plan - Diagnosis (1) Neutropenic fever Is this a current diagnosis for this admission?: YesPlan: Resolved. D/C neutropenic isolation. See attending physician orders. (2) HTN (hypertension) Qualifiers: Hypertension type: essential hypertension Qualified Code(s): I10 - Essential (primary) hypertension Is this a current diagnosis for this admission?: YesPlan: See attending physician orders. (3) Lung cancer Qualifiers: Laterality: unspecified laterality Lung location: unspecified part of lung Qualified Code(s): C34.90 - Malignant neoplasm of unspecified part of unspecified bronchus or lung Is this a current diagnosis for this admission?: YesPlan: See attending physician orders. (4) Gastroenteritis due to antineoplastic chemotherapy Is this a current diagnosis for this admission?: YesPlan: Improving. See attending physician orders. (5) Anemia associated with chemotherapy Is this a current diagnosis for this admission?: YesPlan: See attending physician orders. (6) E. coli UTI Is this a current diagnosis for this admission?: YesPlan: Continue IV Levofloxacin coverage. (7) Salmonella serotype B enterocolitis Is this a current diagnosis for this admission?: YesPlan: Continue IV Levofloxacin coverage. 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
[2016-07-03] MEDS: LEVOFLOXACIN 750 MG/D5W RTU 750 MG/150 ML RTUPB IV SCH (11:12)
[2016-07-03] MEDS: DRONABINOL 2.5 MG CAPSULE PO SCH ×2 (11:13→17:38)
[2016-07-03] MEDS: AMLODIPINE BESYLATE 5 MG TABLET PO SCH (11:13)
[2016-07-03] MEDS: LANSOPRAZOLE 30 MG TAB.RAP.DR PO SCH (11:14)
[2016-07-03] MEDS: MAGNESIUM SULFATE 1 GM/D5W 100 ML IV SCH ×2 (12:56→14:15)
[2016-07-03] MEDS ORDERED: POTASSI CL 20 MEQ/50 ML RIDER 20 MEQ/50 ML RTUPB IV ONE (17:31)
[2016-07-03] MEDS ORDERED: MAGNESIUM SULFATE/D5W 1 GM/100 ML RTUPB IV ONE (20:30)
[2016-07-04] MEDS: DIPHENOXYLATE HCL/ATROP SULF 2.5-0.025 MG TABLET PO PRN ×2 (04:25→09:20)
[2016-07-04 07:35] LABS: HEMATOCRIT 33.6 % (36.0-47.0); HEMOGLOBIN 11.3 g/dL (12.0-15.5); HGB HCT DIFFERENCE 0.3; MEAN CORPUSCULAR HEMOGLOBIN 28.2 pg (27.0-33.4); MEAN CORPUSCULAR HGB CONC 33.8 g/dL (32.0-36.0); MEAN CORPUSCULAR VOLUME 84 fl (80-97); RED BLOOD COUNT 4.02 10^6/uL (3.72-5.28); RED CELL DISTRIBUTION WIDTH 18.2 % (11.5-14.0); WHITE BLOOD COUNT 3.3 10^3/uL (4.0-10.5)
[2016-07-04 07:58] LABS: ANION GAP 8 (5-19); BLOOD UREA NITROGEN 4 mg/dL (7-20); CALCIUM 8.2 mg/dL (8.4-10.2); CARBON DIOXIDE 27 mmol/L (22-30); CHLORIDE 103 mmol/L (98-107); CREATININE RESULT 0.58 mg/dL (0.52-1.25); GLUCOSE 100 mg/dL (75-110); POTASSIUM 3.4 mmol/L (3.6-5.0); SODIUM 138.2 mmol/L (137-145)
[2016-07-04] MEDS: ENOXAPARIN SODIUM INJ 40 MG/0.4 ML DISP.SYRIN SUBCUT SCH (08:00)
[2016-07-04 08:06] LABS: BAND NEUTROPHILS % (MANUAL) 2 % (3-5); BASOPHILS % (MANUAL) 0 % (0-2); EOSINOPHILS % (MANUAL) 5 % (0-6); LYMPHOCYTES % (MANUAL) 10 % (13-45); TOTAL CELLS COUNTED 100
[2016-07-04 08:07] LABS: ANISOCYTOSIS 1+; OVALOCYTES 1+; POIKILOCYTOSIS 1+; SCHISTOCYTES SLIGHT; TEAR DROP CELLS 1+; TOXIC GRANULATION 1+; TOXIC VACUOLATION PRESENT
[2016-07-04] MEDS: LANSOPRAZOLE 30 MG TAB.RAP.DR PO SCH (09:19)
[2016-07-04] MEDS: AMLODIPINE BESYLATE 5 MG TABLET PO SCH (09:20)
[2016-07-04] MEDS: DRONABINOL 2.5 MG CAPSULE PO SCH ×2 (09:20→17:17)
[2016-07-04] MEDS: ONDANSETRON HCL INJ/PF 4 MG/2 ML SDV IV PRN (09:20)
--- NOTE | 2016-07-04 15:18 | PDOC PROGRESS REPORT ---
Subjective Progress Note for:: 07/04/16 Subjective:: Patient reported single episode of watery diarrhea so far today. Generalized weakness, poor p.o intake and poor appetite persist. No abdominal pain. There is some degree of improvement with her nausea but no vomiting. No chest pain or difficulty with breathing. No fever or chills. Physical Exam Vital Signs: Temp Pulse Resp BP Pulse Ox 98.2 F 109 H 17 110/66 99 07/04/16 11:21 07/04/16 11:21 07/04/16 11:21 07/04/16 11:21 07/04/16 11:21 Intake & Output 07/03/16 07/04/16 07/05/16 06:59 06:59 06:59 Intake Total 2460 2082 810 Output Total 400 Balance 2460 2082 410 Physical Exam: General appearance: PRESENT: no acute distress, well-developed, well-nourished, generalized weakness Head exam: PRESENT: atraumatic, normocephalic Eye exam: PRESENT: conjunctiva pink, EOMI, PERRLA. ABSENT: scleral icterus Mouth exam: PRESENT: moist Respiratory exam: PRESENT: clear to auscultation raz Cardiovascular exam: PRESENT: RRR. Tachycardia. ABSENT: diastolic murmur, rubs , systolic murmur GI/Abdominal exam: PRESENT: normal bowel sounds, soft. ABSENT: distended, guarding, mass, organomegaly, rebound, tenderness Extremities exam: PRESENT: full ROM Musculoskeletal exam: PRESENT: deformity - related to her arthritis Neurological exam: PRESENT: alert, awake, oriented to person, oriented to place , oriented to time, oriented to situation, CN II-XII grossly intact. ABSENT: motor sensory deficit Psychiatric exam: PRESENT: appropriate affect, normal mood. ABSENT: homicidal ideation, suicidal ideation Skin exam: PRESENT: dry, intact, warm. ABSENT: cyanosis, rash Results Laboratory Results: 07/04/16 07:03 07/04/16 07:03 07/04/16 07/04/16 07:03 07:03 WBC 3.3 L RBC 4.02 Hgb 11.3 L Hct 33.6 L MCV 84 MCH 28.2 MCHC 33.8 RDW 18.2 H Plt Count 185 Seg Neutrophils % Not Reportable Lymphocytes % Not Reportable Monocytes % Not Reportable Eosinophils % Not Reportable Basophils % Not Reportable Absolute Neutrophils Not Reportable Absolute Lymphocytes Not Reportable Absolute Monocytes Not Reportable Absolute Eosinophils Not Reportable Absolute Basophils Not Reportable Sodium 138.2 Potassium 3.4 L Chloride 103 Carbon Dioxide 27 Anion Gap 8 BUN 4 L Creatinine 0.58 Est GFR ( Amer) > 60 Est GFR (Non-Af Amer) > 60 Glucose 100 Calcium 8.2 L Impressions: Chest X-Ray 06/27/16 01:34 IMPRESSION: Left lower hemithoracic and right upper lobar opacities consistent with prior abnormal CT, 05/19/2016 this patient with suspected metastatic lung cancer . Assessment & Plan - Diagnosis (1) Neutropenic fever Is this a current diagnosis for this admission?: YesPlan: See attending physician orders. (2) HTN (hypertension) Qualifiers: Hypertension type: essential hypertension Qualified Code(s): I10 - Essential (primary) hypertension Is this a current diagnosis for this admission?: YesPlan: See attending physician orders. I will d/c Amlodipine and start on Metoprolol tartrate 12.5 mg po q12 hours for dual purpose of blood pressure control and tachcqardia. (3) Lung cancer Qualifiers: Laterality: unspecified laterality Lung location: unspecified part of lung Qualified Code(s): C34.90 - Malignant neoplasm of unspecified part of unspecified bronchus or lung Is this a current diagnosis for this admission?: YesPlan: See attending physician orders. (4) Gastroenteritis due to antineoplastic chemotherapy Is this a current diagnosis for this admission?: YesPlan: Improving with decrease frequency of diarrhea. See attending physician orders. (5) Anemia associated with chemotherapy Is this a current diagnosis for this admission?: YesPlan: See attending physician orders. (6) E. coli UTI Is this a current diagnosis for this admission?: YesPlan: Continue IV Levofloxacin coverage. (7) Salmonella serotype B enterocolitis Is this a current diagnosis for this admission?: YesPlan: Continue IV Levofloxacin coverage. (8) Hypokalemia, gastrointestinal losses Is this a current diagnosis for this admission?: YesPlan: Start on potassium oral supplemental therapy. Monitor serum level as needed. Her serum magnesium remain fairly okay. 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
[2016-07-04] MEDS: METOPROLOL TARTRATE 25 MG TABLET PO SCH (17:16)
[2016-07-05] MEDS: NORMAL SALINE 1000 ML 1,000 ML IV PRN ×2 (01:42→14:21)
[2016-07-05] MEDS: DIPHENOXYLATE HCL/ATROP SULF 2.5-0.025 MG TABLET PO PRN ×2 (04:40→06:54)
[2016-07-05 06:13] LABS: HEMATOCRIT 32.6 % (36.0-47.0); HEMOGLOBIN 11.1 g/dL (12.0-15.5); HGB HCT DIFFERENCE 0.7; MEAN CORPUSCULAR HEMOGLOBIN 28.5 pg (27.0-33.4); MEAN CORPUSCULAR HGB CONC 33.9 g/dL (32.0-36.0); MEAN CORPUSCULAR VOLUME 84 fl (80-97); RED BLOOD COUNT 3.88 10^6/uL (3.72-5.28); RED CELL DISTRIBUTION WIDTH 18.5 % (11.5-14.0); WHITE BLOOD COUNT 3.4 10^3/uL (4.0-10.5)
[2016-07-05 06:29] LABS: ANION GAP 8 (5-19); BLOOD UREA NITROGEN 4 mg/dL (7-20); CALCIUM 7.8 mg/dL (8.4-10.2); CARBON DIOXIDE 27 mmol/L (22-30); CHLORIDE 103 mmol/L (98-107); CREATININE RESULT 0.54 mg/dL (0.52-1.25); GLUCOSE 91 mg/dL (75-110); SODIUM 138.4 mmol/L (137-145)
[2016-07-05] MEDS: METOPROLOL TARTRATE 25 MG TABLET PO SCH ×2 (06:29→17:25)
[2016-07-05 06:45] LABS: BAND NEUTROPHILS % (MANUAL) 4 % (3-5); BASOPHILS % (MANUAL) 0 % (0-2); EOSINOPHILS % (MANUAL) 2 % (0-6); LYMPHOCYTES % (MANUAL) 13 % (13-45); TOTAL CELLS COUNTED 100
[2016-07-05 06:47] LABS: ANISOCYTOSIS 2+; OVALOCYTES SLIGHT; POIKILOCYTOSIS SLIGHT; TARGET CELLS SLIGHT; TEAR DROP CELLS SLIGHT; TOXIC GRANULATION SLIGHT; TOXIC VACUOLATION PRESENT
[2016-07-05] MEDS: DRONABINOL 2.5 MG CAPSULE PO SCH ×2 (10:26→17:25)
[2016-07-05] MEDS: LANSOPRAZOLE 30 MG TAB.RAP.DR PO SCH (10:26)
[2016-07-05] MEDS: ENOXAPARIN SODIUM INJ 40 MG/0.4 ML DISP.SYRIN SUBCUT SCH (10:28)
[2016-07-05] MEDS: POTASSI CL 20 MEQ/50 ML RIDER 20 MEQ/50 ML RTUPB IV SCH ×3 (10:58→15:37)
--- NOTE | 2016-07-05 12:41 | PDOC PROGRESS REPORT ---
Subjective Progress Note for:: 07/05/16 Subjective:: Patient reported recurrent diarrhea x 2 so far today. There is development of vaginal itching that patient reported usually with vaginal yeast infection. Currently off Levofloxacin and Aztreonam administration. Diarrhea is mostly first thing in the morning. There is no significant nausea, vomiting or abdominal pain. P.O intake remain poor to fair with outside food supply by daughter. No chest pain or difficulty with breathing. No fever or chills. Physical Exam Vital Signs: Temp Pulse Resp BP Pulse Ox 97.6 F 94 17 122/67 100 07/05/16 11:46 07/05/16 11:46 07/05/16 11:46 07/05/16 11:46 07/05/16 11:46 Intake & Output 07/04/16 07/05/16 07/06/16 06:59 06:59 06:59 Intake Total 2082 3436 Output Total 400 Balance 2082 3036 General appearance: PRESENT: no acute distress, cooperative Head exam: PRESENT: atraumatic, normocephalic Mouth exam: PRESENT: moist, tongue midline Respiratory exam: PRESENT: clear to auscultation raz Cardiovascular exam: PRESENT: RRR. ABSENT: diastolic murmur, rubs, systolic murmur GI/Abdominal exam: PRESENT: normal bowel sounds, soft. ABSENT: distended, guarding, mass, organolmegaly, rebound, tenderness Extremities exam: PRESENT: full ROM Musculoskeletal exam: PRESENT: deformity - related to multiple joint involvement with arthritis. Neurological exam: PRESENT: alert, awake, oriented to person, oriented to place , oriented to time, oriented to situation, CN II-XII grossly intact. ABSENT: motor sensory deficit Psychiatric exam: PRESENT: appropriate affect, normal mood. ABSENT: homicidal ideation, suicidal ideation Skin exam: PRESENT: dry, intact, warm. ABSENT: cyanosis, rash Results Laboratory Results: 07/05/16 05:25 07/05/16 05:26 07/05/16 07/05/16 05:25 05:26 WBC 3.4 L RBC 3.88 Hgb 11.1 L Hct 32.6 L MCV 84 MCH 28.5 MCHC 33.9 RDW 18.5 H Plt Count 205 Seg Neutrophils % Not Reportable Lymphocytes % Not Reportable Monocytes % Not Reportable Eosinophils % Not Reportable Basophils % Not Reportable Absolute Neutrophils Not Reportable Absolute Lymphocytes Not Reportable Absolute Monocytes Not Reportable Absolute Eosinophils Not Reportable Absolute Basophils Not Reportable Sodium 138.4 Potassium 3.0 L* Chloride 103 Carbon Dioxide 27 Anion Gap 8 BUN 4 L Creatinine 0.54 Est GFR ( Amer) > 60 Est GFR (Non-Af Amer) > 60 Glucose 91 Calcium 7.8 L Impressions: Chest X-Ray 06/27/16 01:34 IMPRESSION: Left lower hemithoracic and right upper lobar opacities consistent with prior abnormal CT, 05/19/2016 this patient with suspected metastatic lung cancer . Assessment & Plan - Diagnosis (1) Neutropenic fever Is this a current diagnosis for this admission?: YesPlan: See attending physician orders. (2) HTN (hypertension) Qualifiers: Hypertension type: essential hypertension Qualified Code(s): I10 - Essential (primary) hypertension Is this a current diagnosis for this admission?: YesPlan: See attending physician orders. Her blood pressure and tachycardia is improving. (3) Lung cancer Qualifiers: Laterality: unspecified laterality Lung location: unspecified part of lung Qualified Code(s): C34.90 - Malignant neoplasm of unspecified part of unspecified bronchus or lung Is this a current diagnosis for this admission?: YesPlan: See attending physician orders. (4) Gastroenteritis due to antineoplastic chemotherapy Is this a current diagnosis for this admission?: YesPlan: See attending physician orders. (5) Anemia associated with chemotherapy Is this a current diagnosis for this admission?: YesPlan: See attending physician orders. (6) E. coli UTI Is this a current diagnosis for this admission?: YesPlan: See attending physician orders. (7) Salmonella serotype B enterocolitis Is this a current diagnosis for this admission?: YesPlan: I will repeat her stool study for Salmonella species in view of her persistent diarrhea. See attending physician orders. (8) Hypokalemia, gastrointestinal losses Is this a current diagnosis for this admission?: YesPlan: See covering attending physician orders. Patient will receive potassium chloride supplementation. - Time Time Spent with patient: 25-34 minutes Medications reviewed and adjusted accordingly: Yes Anticipated discharge: Home with Homehealth - Inpatient Certification Medical Necessity: Need For IV Fluids, Need For Continuous Telemetry Monitoring , Need for IV Antibiotics, Risk of Complication if Not Cared For in Hospital Post Hospital Care: D/C [employer] Documentation - Plan Summary Plan Summary: See attending physician orders.
[2016-07-05] MEDS ORDERED: TRIMETHOBENZAMIDE HCL 300 MG CAPSULE PO SCH (14:00)
[2016-07-05] MEDS ORDERED: FLUCONAZOLE 100 MG TABLET PO ONE (14:30)
[2016-07-05] MEDS ORDERED: TRIMETHOBENZAMIDE HCL 300 MG CAPSULE PO ONE (15:30)
[2016-07-05] MEDS: MAGNESIUM SULFATE/D5W 1 GM/100 ML RTUPB IV SCH ×2 (17:26→20:04)
[2016-07-06] MEDS: NORMAL SALINE 1000 ML 1,000 ML IV PRN (06:00)
[2016-07-06] MEDS: METOPROLOL TARTRATE 25 MG TABLET PO SCH ×2 (06:00→17:48)
[2016-07-06] MEDS: DIPHENOXYLATE HCL/ATROP SULF 2.5-0.025 MG TABLET PO PRN (06:15)
[2016-07-06 08:08] LABS: ANION GAP 7 (5-19); BLOOD UREA NITROGEN 4 mg/dL (7-20); CALCIUM 7.6 mg/dL (8.4-10.2); CARBON DIOXIDE 26 mmol/L (22-30); CHLORIDE 105 mmol/L (98-107); GLUCOSE 86 mg/dL (75-110); POTASSIUM 3.7 mmol/L (3.6-5.0); SODIUM 137.8 mmol/L (137-145)
[2016-07-06] MEDS: FLUCONAZOLE 100 MG TABLET PO SCH (10:06)
[2016-07-06] MEDS: DRONABINOL 2.5 MG CAPSULE PO SCH (10:06)
[2016-07-06] MEDS: ENOXAPARIN SODIUM INJ 40 MG/0.4 ML DISP.SYRIN SUBCUT SCH (10:07)
[2016-07-06] MEDS: LANSOPRAZOLE 30 MG TAB.RAP.DR PO SCH (10:07)
[2016-07-06] MEDS: MAGNESIUM OXIDE 400 MG TABLET PO SCH (10:07)
[2016-07-06] MEDS ORDERED: ONDANSETRON HCL INJ/PF 4 MG/2 ML SDV IV PRN (10:13)
[2016-07-06] MEDS ORDERED: ONDANSETRON HCL INJ/PF 4 MG/2 ML SDV ONE (10:13)
--- NOTE | 2016-07-06 11:34 | PDOC PROGRESS REPORT ---
Subjective Progress Note for:: 07/06/16 Subjective:: Patient reported some formation to her stool this morning. She received schedule dose of Loperamide this morning. No diarrhea so far. There is some nausea but no vomiting or abdominal pain. P.O intake imp[roving. No chest pain or difficulty with breathing. No fever or chills. Physical Exam Vital Signs: Temp Pulse Resp BP Pulse Ox 97.9 F 78 16 123/63 100 07/06/16 07:35 07/06/16 07:35 07/06/16 07:35 07/06/16 07:35 07/06/16 07:35 Intake & Output 07/05/16 07/06/16 07/07/16 06:59 06:59 06:59 Intake Total 3436 2131 Output Total 400 Balance 3036 2131 Weight 52.8 kg Physical Exam: General appearance: PRESENT: no acute distress, cooperative Head exam: PRESENT: atraumatic, normocephalic Mouth exam: PRESENT: moist, tongue midline Respiratory exam: PRESENT: clear to auscultation raz Cardiovascular exam: PRESENT: RRR. ABSENT: diastolic murmur, rubs, systolic murmur GI/Abdominal exam: PRESENT: normal bowel sounds, soft. ABSENT: distended, guarding, mass, organomegaly, rebound, tenderness Extremities exam: PRESENT: full ROM Musculoskeletal exam: PRESENT: deformity - related to multiple joint involvement with arthritis. Neurological exam: PRESENT: alert, awake, oriented to person, oriented to place , oriented to time, oriented to situation, CN II-XII grossly intact. ABSENT: motor sensory deficit Psychiatric exam: PRESENT: appropriate affect, normal mood. ABSENT: homicidal ideation, suicidal ideation Skin exam: PRESENT: dry, intact, warm. ABSENT: cyanosis, rash Results Laboratory Results: 07/05/16 05:25 07/06/16 07:13 07/05/16 07/06/16 07/06/16 05:26 06:00 07:13 Sodium 137.8 Potassium 3.7 Chloride 105 Carbon Dioxide 26 Anion Gap 7 BUN 4 L Creatinine 0.50 L Est GFR ( Amer) > 60 Est GFR (Non-Af Amer) > 60 Glucose 86 Calcium 7.6 L Magnesium 1.2 L* Stool for White Cells MODERATE H Impressions: Chest X-Ray 06/27/16 01:34 IMPRESSION: Left lower hemithoracic and right upper lobar opacities consistent with prior abnormal CT, 05/19/2016 this patient with suspected metastatic lung cancer . Assessment & Plan - Diagnosis (1) Neutropenic fever Is this a current diagnosis for this admission?: YesPlan: Resolved. See attending physician orders. (2) HTN (hypertension) Qualifiers: Hypertension type: essential hypertension Qualified Code(s): I10 - Essential (primary) hypertension Is this a current diagnosis for this admission?: YesPlan: See attending physician orders. (3) Lung cancer Qualifiers: Laterality: unspecified laterality Lung location: unspecified part of lung Qualified Code(s): C34.90 - Malignant neoplasm of unspecified part of unspecified bronchus or lung Is this a current diagnosis for this admission?: YesPlan: See attending physician orders. (4) Gastroenteritis due to antineoplastic chemotherapy Is this a current diagnosis for this admission?: YesPlan: See attending physician orders. (5) Anemia associated with chemotherapy Is this a current diagnosis for this admission?: YesPlan: See attending physician orders. (6) E. coli UTI Is this a current diagnosis for this admission?: YesPlan: See attending physician orders. (7) Salmonella serotype B enterocolitis Is this a current diagnosis for this admission?: YesPlan: Her stool smear continue to reveal moderate amount of WBC but this may be consequence of her chemotherapy effect on GI tract. See attending physician orders. Follow up on stool culture findings. (8) Hypokalemia, gastrointestinal losses Is this a current diagnosis for this admission?: YesPlan: See covering attending physician orders. - Time Time Spent with patient: 25-34 minutes Medications reviewed and adjusted accordingly: Yes Anticipated discharge: Home with Homehealth Within: Other - Inpatient Certification Medical Necessity: Need Close Monitoring Due to Risk of Patient Decompensation, Need For IV Fluids, Need For Continuous Telemetry Monitoring, Risk of Complication if Not Cared For in Hospital Post Hospital Care: D/C [employer] Documentation - Plan Summary Plan Summary: See attending physician orders.
[2016-07-07] MEDS: METOPROLOL TARTRATE 25 MG TABLET PO SCH (05:29)
[2016-07-07] MEDS: ENOXAPARIN SODIUM INJ 40 MG/0.4 ML DISP.SYRIN SUBCUT SCH (08:21)
[2016-07-07] MEDS: NORMAL SALINE 1000 ML 1,000 ML IV PRN (08:30)
[2016-07-07 08:51] VITALS: BP 128/73
[2016-07-07] MEDS: FLUCONAZOLE 100 MG TABLET PO SCH (10:12)
[2016-07-07] MEDS: MAGNESIUM OXIDE 400 MG TABLET PO SCH (10:12)
[2016-07-07] MEDS: LANSOPRAZOLE 30 MG TAB.RAP.DR PO SCH (10:12)
--- NOTE | 2016-07-07 11:47 | PDOC DISCHARGE SUMMARY ---
General - Admit/Disc Date/PCP Admission Date/Primary Care Provider: 06/27/16 08:40 CHRIS GARRIDO Discharge Date: 07/07/16 - Discharge Diagnosis (1) Neutropenic fever Is this a current diagnosis for this admission?: Yes (2) HTN (hypertension) Is this a current diagnosis for this admission?: Yes (3) Lung cancer Is this a current diagnosis for this admission?: Yes (4) Gastroenteritis due to antineoplastic chemotherapy Is this a current diagnosis for this admission?: Yes (5) Anemia associated with chemotherapy Is this a current diagnosis for this admission?: Yes (6) E. coli UTI Is this a current diagnosis for this admission?: Yes (7) Salmonella serotype B enterocolitis Is this a current diagnosis for this admission?: Yes (8) Hypokalemia, gastrointestinal losses Is this a current diagnosis for this admission?: Yes - Additional Information Discharge Diet: Regular, Other (Comments) - low salt diet Discharge Activity: Activity As Tolerated, Balance Activity w/Rest, No Driving, Keep Legs Elevated, Slowly Increase Activity, No tub bath Home Medications: Ondansetron HCl [Zofran 8 mg Tablet] 8 mg PO TID 06/27/16 Diphenoxylate HCl/Atrop Sulf [Lomotil 2.5 mg Tablet] 1 - 2 tab PO ASDIR PRN #30 tablet 07/07/16 Magnesium Oxide [Mag-Ox 400 mg Tablet] 400 mg PO DAILY #30 tablet 07/07/16 Metoprolol Succinate 25 mg PO DAILY #30 tab.er.24h 07/07/16 History of Present Illness History of Present Illness: PRANAY FRAUSTO is a 65 year old female known to my practice who presented to the ED with above complaints. Spouse reported that patient was recently started on a new chemotherapy drug with 2 weeks interval administration and currently on her second cycle but have been gradually weak over last couple of days. There is associated loss of appetite, nausea, vomiting and diarrhea. Family noted that she has been less participatory and warm to touch. Her pre presentation temperature was reported at 103.6F. Spouse reported productive cough with sputum described as whitish in character. No reported chest pain or difficulty with breathing. She denied any dysuria, hematuria, of flank pain. Family reported no family member with similar problem. Hospital Course Hospital Course: Patient was placed in reverse isolation due to her profound neutropenia with fever. Her urine culture did grew E. Coli and stool revealed Salmonella species both sensitive to Levofloxacin Patient has adequate antibiotic coverage since admission. She reported vaginal itching with report that it is similar to her antibiotic related yeast vaginitis. She was managed with Diflucan. Her diarrhea did persist necessitating treatment with Lomotil and satisfactory response. Her neutropenia was managed with neupogen with satisfactory response. Her blood pressure medication management was changed from Amlodipine to Metoprolol Tartrate and eventually succinate 25 mg po daily due to associated tachycardia with her blood pressure during this hospitalization. She is agreeable to discharge home today an follow up with me and Dr Pritchett as instructed upon discharge. Physical Exam Vital Signs: Temp Pulse Resp BP Pulse Ox 98.3 F 82 16 128/73 H 100 07/07/16 08:00 07/07/16 08:00 07/07/16 08:00 07/07/16 08:00 07/07/16 08:00 Intake & Output 07/06/16 07/07/16 07/08/16 06:59 06:59 06:59 Intake Total 2131 3459 Balance 2131 3459 Weight 52.8 kg 52.2 kg Physical Exam: General appearance: PRESENT: no acute distress, cooperative Head exam: PRESENT: atraumatic, normocephalic Mouth exam: PRESENT: moist, tongue midline Respiratory exam: PRESENT: clear to auscultation raz Cardiovascular exam: PRESENT: RRR. ABSENT: diastolic murmur, rubs, systolic murmur GI/Abdominal exam: PRESENT: normal bowel sounds, soft. ABSENT: distended, guarding, mass, organomegaly, rebound, tenderness Extremities exam: PRESENT: full ROM Musculoskeletal exam: PRESENT: deformity - related to multiple joint involvement with arthritis. Neurological exam: PRESENT: alert, awake, oriented to person, oriented to place , oriented to time, oriented to situation, CN II-XII grossly intact. ABSENT: motor sensory deficit Psychiatric exam: PRESENT: appropriate affect, normal mood. ABSENT: homicidal ideation, suicidal ideation Skin exam: PRESENT: dry, intact, warm. ABSENT: cyanosis, rash Results Laboratory Results: 07/05/16 05:25 07/06/16 07:13 07/06/16 07:13 Magnesium 1.4 L Impressions: Chest X-Ray 06/27/16 01:34 IMPRESSION: Left lower hemithoracic and right upper lobar opacities consistent with prior abnormal CT, 05/19/2016 this patient with suspected metastatic lung cancer . Qualifiers [facility] BEING DISCHARGED WITH ANY OF THE FOLLOWING DIAGNOSIS?: No Plan Discharge Plan: D/C home today. Follow up with me and Dr. Pritchett as instructed upon discharge. Time Spent: Less than 30 Minutes
== END 2016-07-07 13:07 | disposition home or self-care (01) | DRG 809 ==
LOC: ER 22:50 → UNDOADMIN 06-27 06:16 → EH 06-27 06:16 → 4S 06-27 07:49
PROVIDERS: ADMIT Internal Medicine Geriatric Medicine; ATTEND Internal Medicine Geriatric Medicine
PROC: 30233P1 Transfusion of Nonautologous Frozen Red Cells into Peripheral Vein, Percutaneous Approach (ICD-10-PCS; principal; 2016-06-30)
PROC: 30233P1 Transfusion of Nonautologous Frozen Red Cells into Peripheral Vein, Percutaneous Approach (ICD-10-PCS; 2016-06-30)
DX: D70.1 Agranulocytosis secondary to cancer chemotherapy (principal); A02.0 Salmonella enteritis; K52.1 Toxic gastroenteritis and colitis; N39.0 Urinary tract infection, site not specified; C34.90 Malignant neoplasm of unspecified part of unspecified bronchus or lung; D64.81 Anemia due to antineoplastic chemotherapy; T45.1X5A Adverse effect of antineoplastic and immunosuppressive drugs, initial encounter; B96.20 Unspecified Escherichia coli [E. coli] as the cause of diseases classified elsewhere; I10 Essential (primary) hypertension; R50.81 Fever presenting with conditions classified elsewhere; M19.90 Unspecified osteoarthritis, unspecified site; E87.6 Hypokalemia; B37.3 Candidiasis of vulva and vagina; T36.95XA Adverse effect of unspecified systemic antibiotic, initial encounter; Z88.2 Allergy status to sulfonamides; Z88.6 Allergy status to analgesic agent; Z88.8 Allergy status to other drugs, medicaments and biological substances; Z90.710 Acquired absence of both cervix and uterus; Z79.899 Other long term (current) drug therapy
CPT/HCPCS: 36415; 36430; 71010; 80048; 80053; 81001; 82272; 82803; 82962; 83605; 83735; 84484; 85025; 85610; 85730; 86850; 86900; 86901; 86920; 87040; 87045; 87077; 87086; 87088; 87186; 87205; 87493; 87804; 89055; 93005; 93010; 96365; 96375; 99291; J1442; J1650; J1956; J2405; J3370; J3475; J3480; J3490; J7030; P9016; Q0167

== ENCOUNTER → 2016-07-20 | Outpatient (CLI) | payer MEDICARE, OTHER | LOC: RAD 20:32 | PROVIDERS: ATTEND Internal Medicine Medical Oncology | DX: C34.90 Malignant neoplasm of unspecified part of unspecified bronchus or lung (principal); C78.7 Secondary malignant neoplasm of liver and intrahepatic bile duct | CPT/HCPCS: 78815; A9552 ==